=== PATIENT | male | born 1945 | race Caucasian/White ===

== ENCOUNTER 2025-07-27 05:15 | Emergency (ER) | payer OTHER, MEDICARE, SELFPAY ==
[2025-07-27] VITALS (16 sets, daily range): BP systolic 92–209; BP diastolic 46–109; PULSE 99–142; RESP 0–47; TEMP 36.4–37.2; O2SAT 90–99; BMI 25.7
--- NOTE | 2025-07-27 05:31 | XRR_ITS ---
PROCEDURE INFORMATION: Exam: XR Chest Exam date and time: 07/27/2025 5:42 AM Age: 79 years old Clinical indication: Chest pressure; Chest pain with hypertension; Additional info: Cp TECHNIQUE: Imaging protocol: Radiologic exam of the chest. Views: 1 view. COMPARISON: No relevant prior studies available. FINDINGS: Lungs: Unremarkable. No consolidation. Pleural spaces: Unremarkable. No pleural effusion. No pneumothorax. Heart/Mediastinum: Unremarkable. No cardiomegaly. Bones/joints: Unremarkable. XR/XR chest 1V portable [id number] IMPRESSION: No acute findings.
--- NOTE | 2025-07-27 05:32 | ECG_ITS ---
[facility] Date: 2025-07-27 Pat Name: Ismael Gutiérrez Department: Room: Gender: Male Associate Accountant: : 1945 Requested By: Vik Godinez Order Number: [id number] Holt MD: Que Hutson M.D. Measurements Intervals [place] Rate: 127 P: 68 [place]: 178 QRS: 104 QRSD: 83 T: 72 QT: 288 QTc: 420 Interpretive Statements SINUS TACHYCARDIA POSSIBLE RIGHT VENTRICULAR HYPERTROPHY [SOME/ALL OF: PROMINENT R IN V1, LATE TRANSITION, RAD, MARRY, SSS] MODERATE ST DEPRESSION [0.05+ mV ST DEPRESSION] No previous ECG available for comparison Electronically Signed On 07-28-2025 21:02:00 CDT by Que Hutson M.D. [email or web address] [id number]
--- NOTE | 2025-07-27 05:43 | ED_ITS ---
HPI - Abdominal Pain 2 General: Chief Complaint: Abdominal Pain Stated Complaint: ABD Pain Time Seen by Provider: 07/27/25 05:43 History of Present Illness: 71-year-old male presents emergency room via EMS complaints abdominal pain. Patient has a suprapubic catheter in place he is changed monthly his next change is due on August 03. . He states his catheter has not been draining properly for the last 24 hours. He is having severe lower abdominal pain and cramping. Suprapubic catheter was placed because patient had prostate cancer and course treatment is no longer able to empty his bladder normally. He denies any fever prior to arrival but he does have significant chills and rigors on arrival here. No complaints of chest pain or shortness of breath Associated Symptoms: Reports chills and fever(s); Denies dysuria Related Data Home Medications ?Medication ?Instructions ?Recorded ?Confirmed alfuzosin 10 mg tablet,extended 10 mg PO BEDTIME 07/2707/27/25 release 24 hr solifenacin 5 mg tablet 5 mg PO DAILY 07/27/2507/27 Allergies Allergy/AdvReac Type Severity Reaction Status Date / Time No Known Allergies Allergy Verified 07/27/25 05:27 Review of Systems 2 Const: Reports: fever(s), chills, body aches, fatigue and malaise Card: Denies: chest pain Resp: Denies: dyspnea GI: Reports: abdominal pain : Denies: dysuria, urinary frequency or urinary urgency Musc: Reports: back pain; Denies: neck pain Skin/Breast: Denies: rash Physical Exam 2 Const: GENERAL APPEARANCE: cooperative ORIENTATION/CONSCIOUSNESS: Yes awake, Yes oriented to person, Yes oriented to place and Yes oriented to time HENMT: COMMON NORMALS: normocephalic, atraumatic and hearing grossly normal bilaterally HEAD & SCALP: normocephalic and atraumatic Resp: COMMON NORMALS: normal respiratory effort, No retractions, No use of accessory muscles and clear to auscultation bilaterally AUSCULTATION: clear to auscultation bilaterally Cardio: COMMON NORMALS: regular rate, regular rhythm and No murmurs present (Cardio) RATE: regular rate RHYTHM: regular rhythm GI: COMMON NORMALS: No hepatosplenomegaly present PALPATION: Yes Firmness to palpation present (GI), Yes Tenderness to palpation present (GI), No Guarding due to palpation present (GI) and Yes No hepatosplenomegaly present OTHER: Bladder palpable above the level of the umbilicus Extremity: COMMON NORMALS: normal to inspection, capillary refill normal, no clubbing, cyanosis or edema, no calf tenderness and no pedal edema Neuro: SENSORIUM/ORIENTATION: Yes oriented to person, Yes oriented to place and Yes oriented to time Skin: COMMON NORMALS: no rashes or lesions noted GENERAL SKIN EXAM: no rashes or lesions noted Course 2 Vital Signs: Vital signs: Vital Signs Temperature 98.9 F 07/27/25 08:59 Pulse Rate 129 H 07/27/25 10:27 Respiratory Rate 25 H 07/27/25 10:27 Blood Pressure 94/49 07/27/25 10:27 Pulse Oximetry 90 07/27/25 10:27 Oxygen Delivery Me thod Room Air 07/27/25 07:41 MDM - Abdominal Pain Medical Decision Making Patient has severe sepsis with leukocytosis and a lactic acid of 7.3. His urinary retention began within the last 24 hours at this point his creatinine is still well-preserved potassium and sodium are normal. We initially placed a Gonzalez catheter got frankly bloody urine got about 6 to 700 mL out and then we were attempting to change to a CBI catheter to irrigate out clots. The initial catheter had slowed significantly and output. We are unable to get the CBI catheter back in we went to place a regular Gonzalez back in the bladder had difficulty getting placement we are able to get robert hematuria again but minimal drainage. Patient continues to have abdominal discomfort. Sepsis bolus has been ordered and patient has been started on Zosyn. Will transfer for urology. Second lactic elevated blood pressure in the 90s systolic MAP is greater than 65. Patient stable at time of discharge. Medical Records I reviewed the patient's medical records. Patient supplied outside medical records Lab Data I reviewed the patient's lab results. 07/27/25 05:44 07/27/25 05:44 Labs/Radiology: Radiology Impressions Chest X-Ray 07/27/25 05:31 IMPRESSION: No acute findings. Abdomen/Pelvis CT 07/27/25 06:18 IMPRESSION: 1. Markedly thickened urinary bladder wall containing a suprapubic catheter. 2. Intravesicular calculus. 3. Moderate bilateral ureteropelvic caliectasis with periureteral and perinephric stranding greater on the right side than the left. 4. Possibly abnormal cecum and adjacent ascending colon. Laboratory Results WBC 20.08 10^3/uL (3.29-11.43) H 07/27/25 05:44 RBC 5.62 10^6/uL (3.85-5.65) 07/27/25 05:44 Hgb 18.60 g/dL (11.27-16.99) H 07/27/25 05:44 Hct 54.7 % (37-53) H 07/27/25 05:44 MCV 97.3 fl (82-101) 07/27/25 05:44 MCH 33.1 pg (27-33) H 07/27/25 05:44 MCHC 34.0 g/dL (30-55) 07/27/25 05:44 RDW 12.6 % (12.1-15.1) 07/27/25 05:44 Plt Count 212 10^3/cmm (157-399) 07/27/25 05:44 MPV 11.1 fL (7.4-10.4) H 07/27/25 05:44 Neut % (Auto) 94.0 % 07/27/25 05:44 Lymph % (Auto) 3.2 % 07/27/25 05:44 Richardson % (Auto) 1.6 % 07/27/25 05:44 Eos % (Auto) 0.0 % 07/27/25 05:44 Baso % (Auto) 0.1 % 07/27/25 05:44 Neut # (Auto) 18.85 10^3/uL (1.8-7.7) H 07/27/25 05:44 Lymph # (Auto) 0.7 10^3/uL (0.8-4.8) L 07/27/25 05:44 Richardson # (Auto) 0.3 10^3/uL (0.2-0.9) 07/27/25 05:44 Eos # (Auto) 0.0 10^3/uL (0.0-0.8) 07/27/25 05:44 Baso # (Auto) 0.0 10^3/uL (0.0-0.1) 07/27/25 05:44 Nucleated RBC % (auto) 0 % 07/27/25 05:44 Nucleated RBCs # 0.0 /100WBC 07/27/25 05:44 Specimen Type Arterial 07/27/25 07:40 Sample Site Radial, right 07/27/25 07:40 ABG pH 7.40 (7.35-7.45) 07/27/25 07:40 ABG pCO2 18.5 mmHg (35-45) L* 07/27/25 07:40 ABG pO2 84.7 mmHg (80.0-100.0) 07/27/25 07:40 ABG PO2/FiO2 Ratio 403 07/27/25 07:40 ABG HCO3 11.4 mmol/L (22-26) L 07/27/25 07:40 ABG O2 Saturation 97.2 07/27/25 07:40 ABG Base Excess -10.5 mmol/L (-2.0-2.0) L 07/27/25 07:40 Fly Test Pos 07/27/25 07:40 A-a O2 Gradient 5.2 mmHg (5-10) 07/27/25 07:40 Hematocrit 48.8 % (42-52) 07/27/25 07:40 Hgb O2 Saturation 96.1 % (95-100) 07/27/25 07:40 Carboxyhemoglobin 0.9 %THgb (0.4-20.1) 07/27/25 07:40 Methemoglobin 0.2 % (0.4-1.5) L 07/27/25 07:40 Total Hemoglobin 15.9 g/dL (14-18) 07/27/25 07:40 Sodium 143.0 mmol/L (131-143) 07/27/25 07:40 Potassium 3.5 mmol/L (3.5-5.0) 07/27/25 07:40 Glucose 148.0 mg/dL (70-115) H 07/27/25 07:40 Ionized Calcium 1.1 mmol/L (1.1-1.4) 07/27/25 07:40 O2 Delivery Device Room air 07/27/25 07:40 FiO2 21.0 % 07/27/25 07:40 Associate Media Director ID [place] 07/27/25 07:40 Sodium 141 mmol/L (136-145) 07/27/25 05:44 Potassium 4.7 mmol/L (3.5-5.1) 07/27/25 05:44 Chloride 97 mmol/L (98-107) L 07/27/25 05:44 Carbon Dioxide 20 mmol/L (22-29) L 07/27/25 05:44 Anion Gap 28.7 (5-19) H 07/27/25 05:44 BUN 23 mg/dL (8-23) 07/27/25 05:44 Creatinine 1.2 mg/dL (0.7-1.2) 07/27/25 05:44 GFR Calculation Not Reportable 07/27/25 05:44 Glucose 222 mg/dL (65-115) H 07/27/25 05:44 Calculated Osmolality 303 mOsm/kg (285-295) H 07/27/25 05:44 Lactic Acid 7.3 mmol/L (0.5-2.2) H* 07/27/25 05:44 Lactic Acid (Sepsis) 11.2 mmol/L (0.5-2.2) H* 07/27/25 08:50 Calcium 10.2 mg/dL (8.5-10.5) 07/27/25 05:44 Phosphorus 3.1 mg/dL (2.5-4.5) 07/27/25 05:44 Magnesium 1.8 mg/dL (1.7-2.3) 07/27/25 05:44 Total Bilirubin 1.2 mg/dL (0.15-1.2) 07/27/25 05:44 AST 25 U/L (0-40) 07/27/25 05:44 ALT 25 U/L (0-41) 07/27/25 05:44 Alkaline Phosphatase 99 U/L (40-130) 07/27/25 05:44 Troponin T Baseline 50 ng/L (0-15) H 07/27/25 05:44 Troponin T 120 Minute 83.94 ng/L (0-15) H 07/27/25 08:15 Delta Troponin T 33.94 ABS# (0-10) H* 07/27/25 08:15 C-Reactive Protein 22.1 mg/L (0.0-4.9) H 07/27/25 05:44 Total Protein 7.5 g/dL (6.6-8.7) 07/27/25 05:44 Albumin 4.9 g/dL (3.5-5.2) 07/27/25 05:44 Globulin 2.6 g/dL (1.3-4.6) 07/27/25 05:44 Lipase 14 U/L (13-60) 07/27/25 05:44 Urine Color Red (Yellow) A 07/27/25 06:09 Urine Appearance Turbid (CLEAR) A 07/27/25 06:09 Urine pH TNP 07/27/25 06:09 Ur Specific [place] Not Reportable 07/27/25 06:09 Urine Protein Not Reportable 07/27/25 06:09 Urine Glucose (UA) Not Reportable 07/27/25 06:09 Urine Ketones Not Reportable 07/27/25 06:09 Urine Blood Not Reportable 07/27/25 06:09 Urine Nitrate Not Reportable 07/27/25 06:09 Urine Bilirubin Not Reportable 07/27/25 06:09 Urine Urobilinogen Not Reportable 07/27/25 06:09 Ur Leukocyte Esterase Not Reportable 07/27/25 06:09 Urine RBC >100 /hpf (0-2) H 07/27/25 06:09 Urine WBC 0-4 /hpf (0-5) H 07/27/25 06:09 Ur Squamous Epith Cells 0-4 /hpf (0-5) H 07/27/25 06:09 Amorphous Sediment Not Reportable 07/27/25 06:09 Urine Bacteria 2+ /hpf (NONE) H 07/27/25 06:09 All radiology interpretation(s) finalized by discharge EKG Data EKG 1: I personally reviewed and interpreted this EKG as follows: Interpretation: EKG 07/27/2025 7:06 AM sinus tachycardia rate 127. No acute ST elevation ID interval 178 QTc 363. No EKGs available for comparison Critical Care Time 2 Critical Care Time: Critical Care Time: Yes Total Critical Care Time: 40 Attestation: The high probability of a clinically significant, sudden or life threatening deterioration of the patient's cardiovascular renal urologic system(s) required my full and direct attention, intervention and personal management. The critical care time is as shown. This time is in addition to time spent performing any reported procedures but includes the following: [x] Data and vital sign review and interpretation [x] Patient assessment, examination and intervention [x] Documentation [x] Medication orders and management Discharge Plan Discharge Patient Disposition: Xfer Short-Term Hosp Clinical Impression: Sepsis, Hematuria, Obstructed Gonzalez catheter, History of prostate cancer Condition: Stable Patient Instructions: Abdominal Pain (ED) Print Language: [place] Coding Level of Care Code ED Senior Finance Manager for Bertha Baker
[2025-07-27 05:55] LABS: Hematocrit 54.7 % (37-53); Hemoglobin 18.60 g/dL (11.27-16.99); Mean Corpuscular HGB Conc 34.0 g/dL (30-55); Mean Corpuscular Hemoglobin 33.1 pg (27-33); Mean Corpuscular Volume 97.3 fl (82-101); Nucleated Red Blood Cells % 0 %; Platelet Count 212 10^3/cmm (157-399); Red Blood Count 5.62 10^6/uL (3.85-5.65); White Blood Count 20.08 10^3/uL (3.29-11.43)
[2025-07-27 06:08] LABS: Troponin(5th) Baseline 50 ng/L (0-15)
[2025-07-27 06:09] LABS: Alanine Aminotransferase 25 U/L (0-41); Albumin Level 4.9 g/dL (3.5-5.2); Alkaline Phosphatase 99 U/L (40-130); Anion Gap 28.7 (5-19); Aspartate Amino Transferase 25 U/L (0-40); Blood Urea Nitrogen 23 mg/dL (8-23); Calcium 10.2 mg/dL (8.5-10.5); Carbon Dioxide 20 mmol/L (22-29); Chloride 97 mmol/L (98-107); Creatinine Clr Calc Pharmacy 58.1488; Globulin 2.6 g/dL (1.3-4.6); Glucose 222 mg/dL (65-115); Lipase 14 U/L (13-60); Magnesium 1.8 mg/dL (1.7-2.3); Osmolality Calculated 303 mOsm/kg (285-295); Potassium 4.7 mmol/L (3.5-5.1); Sodium 141 mmol/L (136-145); Total Protein 7.5 g/dL (6.6-8.7)
[2025-07-27 06:16] LABS: Lactic Sepsis W/Reflex 7.3 mmol/L (0.5-2.2)
--- NOTE | 2025-07-27 06:18 | CTR_ITS ---
PROCEDURE INFORMATION: Exam: CT Abdomen And Pelvis Without Contrast Exam date and time: 07/27/2025 6:29 AM Age: 79 years old Clinical indication: Abdominal pain; Localized; Lower; Prior surgery; Surgery date: 6+ months; Surgery type: Prostate; Additional info: Flank pain TECHNIQUE: Imaging protocol: Computed tomography of the abdomen and pelvis without contrast. Radiation optimization: All CT scans at this facility use at least one of these dose optimization techniques: automated exposure control; mA and/or kV adjustment per patient size (includes targeted exams where dose is matched to clinical indication); or iterative reconstruction. COMPARISON: CR (CHEST, ) 07/27/2025 5:42 AM RADIATION DOSE METRICS: Total DLP (mGy-cm): 844.35 FINDINGS: Coronary arteries: Coronary artery calcifications. Diaphragm: Small hiatal hernia. Liver: Left hepatic cyst. Gallbladder and biliary ducts: Normal. No calcified stones. No ductal dilation. Pancreas: Normal. No ductal dilation. Spleen: Normal. No splenomegaly. Adrenal glands: Normal. No mass. Kidneys and ureters: A 15 mm vesicular calculus is present. This is just to the right of midline and may be partially within the UVJ. Mild/moderate ureteropelvic caliectasis bilaterally. In addition there is mild perinephric stranding and periureteral stranding, both mild but greater on the right side than the left. Additional punctate nonobstructing renal calculi on either side. Stomach and bowel: Possible thickening of the wall of the cecum and immediately adjacent ascending colon. There is also stranding adjacent to the cecum. Inflammation or a neoplastic process could be present. Correlate clinically. Appendix: No evidence of appendicitis. Intraperitoneal space: There is a mild amount of free fluid within the lower abdomen and pelvis right greater than left. Vasculature: Unremarkable. No abdominal aortic aneurysm. Lymph nodes: Unremarkable. No enlarged lymph nodes. Urinary bladder: The urinary bladder is collapsed around a suprapubic catheter. The urinary bladder wall is distinctly thickened, gas is present within the urinary bladder presumably related to the catheter. Reproductive: Unremarkable as visualized. Bones/joints: Unremarkable. No acute fracture. Soft tissues: Unremarkable. CT/CT kidney stone [id number] IMPRESSION: 1. Markedly thickened urinary bladder wall containing a suprapubic catheter. 2. Intravesicular calculus. 3. Moderate bilateral ureteropelvic caliectasis with periureteral and perinephric stranding greater on the right side than the left. 4. Possibly abnormal cecum and adjacent ascending colon.
[2025-07-27 06:34] LABS: Add Urine Microscopic? NO
[2025-07-27 06:52] LABS: Reflex Lactate Order REFLEX LACTIC ORDERD
[2025-07-27 07:03] LABS: UA Manual Slide Review YES
[2025-07-27 07:04] LABS: Charge for UA Resulting for Rev
[2025-07-27] MEDS: piperacillin-tazobactam 3.375 GM in sodium chloride 0.9% (plus) 50 ML IV (07:35)
[2025-07-27 07:52] LABS: ABG PH Result 7.40 (7.35-7.45); Alveolar-Arterial Oxygen Gradi 5.2 mmHg (5-10); Arterial Blood Gas Hematocrit 48.8 % (42-52); Blood Gas Allen Test Pos; Blood Gas Sample Type Arterial; Carboxyhemoglobin 0.9 %THgb (0.4-20.1); Glucose Level-ABG 148.0 mg/dL (70-115); HCO3 ABG 11.4 mmol/L (22-26); Ionized Calcium Level - ABG 1.1 mmol/L (1.1-1.4); Methemoglobin 0.2 % (0.4-1.5); Oxygen Saturation ABG 97.2; PO2 ABG 84.7 mmHg (80.0-100.0); Potassium Level - ABG 3.5 mmol/L (3.5-5.0); Sodium Level - ABG 143.0 mmol/L (131-143)
[2025-07-27 07:53] LABS: ABG PCO2 18.5 mmHg (35-45); Blood Gas Operator Identificat MONRO; Blood Gas Sample Site Radial, right; PO2 FiO2 Ratio Arterial Blood 403
[2025-07-27] MEDS: fentaNYL 50 mcg/mL INJ 2mL 25 MCG IVP (08:20)
[2025-07-27 08:43] LABS: Troponin 5 2HR 83.94 ng/L (0-15)
[2025-07-27] MEDS: LORazepam 2 mg/mL INJ 1 mL 1 MG IVP (08:56)
[2025-07-27 09:04] LABS: Troponin 5 2HR Delta 33.94 ABS# (0-10)
--- NOTE | 2025-07-27 09:16 | ECG_ITS ---
[facility]: 2025-07[facility]27 Pat Name: Ismael Gutiérrez Department: Room: Gender: Male Control Technician: : 1945 Requested By: Axel Newton Order Number: [id number] Jonathon MD: HAZEL DUENAS Measurements Intervals [place] Rate: 141 P: 265 SC: 158 QRS: 48 QRSD: 78 T: 65 QT: 325 QTc: 499 Interpretive Statements SINUS TACHYCARDIA, POSSIBLE ATRIAL FLUTTER LOW QRS VOLTAGE IN EXTREMITY LEADS [QRS DEFLECTION < 0.5 mV IN LIMB LEADS] ABNORMAL RHYTHM ECG Compared to ECG 07/27/2025 07:06:31 Low QRS voltage now present ST (T wave) deviation no longer present Electronically Signed On 07-28-2025 21:19:31 CDT by HAZEL DUENAS [id number]
[2025-07-27 09:43] LABS: Lactic Acid level (Lactate) 11.2 mmol/L (0.5-2.2)
[2025-07-28 06:22] LABS: Bacillus cereus group Not Detected (NOT DETECT); Bacillus subtillis group Not Detected (NOT DETECT); Corynebacterium Not Detected (NOT DETECT); Cutibacterium acnes (P.acnes) Not Detected (NOT DETECT); Enterococcus faecalis Detected (NOT DETECT); Enterococcus faecium Not Detected (NOT DETECT); Listeria Not Detected (NOT DETECT); Micrococcus Not Detected (NOT DETECT); Pan Candida Not Detected (NOT DETECT); Pan Gram-Negative Detected (NOT DETECT); Staphylococcus epidermidis Not Detected (NOT DETECT); Staphylococcus lugdunensis Not Detected (NOT DETECT); Staphylococcus species Not Detected (NOT DETECT); Streptococcus anginosus group Not Detected (NOT DETECT); Streptococcus pyogenes Not Detected (NOT DETECT); Streptococcus species Not Detected (NOT DETECT); vanA Not Detected ` (NOT DETECT); vanC Not Detected (NOT DETECT)
[2025-07-28 06:27] LABS: Bacteroides fragilis Not Detected (NOT DETECT); Citrobacter Not Detected (NOT DETECT); Cronobacter sakazakii Not Detected (NOT DETECT); Enterobacter non cloacae Not Detected (NOT DETECT); Fusobacterium necrophorum Not Detected (NOT DETECT); Fusobacterium nucleatum Not Detected (NOT DETECT); Klebsiella pneumoniae group Not Detected (NOT DETECT); Morganella morganii Not Detected (NOT DETECT); Pan Candida Not Detected (NOT DETECT); Pan Gram-Positive Not Detected (NOT DETECT); Proteus mirabilis Not Detected (NOT DETECT); Serratia Not Detected (NOT DETECT); Serratia marcescens Not Detected (NOT DETECT); Stenotrophomonas maltophilia Not Detected (NOT DETECT)
--- NOTE | 2025-07-28 09:17 | DCPLANNER ---
faxed blood culture results to [facility] [phone] S
== END 2025-07-27 10:28 | disposition short-term general hospital (02) ==
PROVIDERS: Student in an Organized Health Care Education/Training Program; Emergency Provider Family Medicine
DX: A41.9 Sepsis, unspecified organism (principal); R31.9 Hematuria, unspecified; T83.091A Other mechanical complication of indwelling urethral catheter, initial encounter; Z85.46 Personal history of malignant neoplasm of prostate; X58.XXXA Exposure to other specified factors, initial encounter
CPT/HCPCS: 36415; 36600; 71045; 74176; 80051; 80053; 81003; 82330; 82805; 83605; 83690; 83735; 84100; 84484; 85025; 86140; 87040; 87077; 87086; 87150; 87186; 87205; 93005; 96365; 96375; 99285; J2060; J2543; J3010; J7030; J9999